=== PATIENT | female | born 1940 | race Caucasian/White ===

== ENCOUNTER 2016-09-18 15:42 | Emergency (ER) | payer MEDICARE, OTHER, MEDICAID ==
--- NOTE | 2016-09-18 18:06 | ER Document Report ---
ED Fall - General Chief Complaint: Fall Injury Stated Complaint: FALL;EYE LACERATION TRAVEL OUTSIDE OF THE [place] IN LAST 30 DAYS: No - HPI Patient complains to provider of: fall laceration to the left jew Notes: Patient coming in after her fall group home according to report patient fell of a wheelchair. According to family the patient is bedridden unclear how the patient had a fall. Patient otherwise does have a history of dementia. Patient does have bruising around left orbit and a small laceration. Patient - Related data Allergies/Adverse Reactions: ceftriaxone sodium [From Rocephin] Allergy (Intermediate, Verified 10/17/14 18: 25) acetaminophen [From Vicodin] Allergy (Verified 10/17/14 18:25) codeine [Codeine] Allergy (Verified 10/17/14 18:25) hydrocodone bitartrate [From Vicodin] Allergy (Verified 10/17/14 18:25) hydromorphone HCl [From Dilaudid] Allergy (Verified 10/17/14 18:25) latex [Latex] Allergy (Verified 10/17/14 18:25) oxycodone HCl [From Percocet] Allergy (Verified 10/17/14 18:25) Penicillins Allergy (Verified 10/17/14 18:25) Sulfa (Sulfonamide Antibiotics) Allergy (Verified 10/17/14 18:25) Past Medical History - Social History Smoking Status: Former Smoker Chew tobacco use (# tins/day): No Frequency of alcohol use: None Drug Abuse: None Family History: Reviewed & Not Pertinent Patient has suicidal ideation: No Patient has homicidal ideation: No - Past Medical History Cardiac Medical History: Reports: Hx Heart Attack, Hx Hypercholesterolemia, Hx Hypertension Renal/ Medical History: Reports: Hx Kidney Stones, Hx Ovarian Cysts. Denies: Hx Peritoneal Dialysis Psychiatric Medical History: Reports: Hx Anxiety, Hx Dementia, Hx Depression Past Surgical History: Reports: Hx Section, Hx Hysterectomy, Hx Tonsillectomy, Hx Tubal Ligation - Immunizations Hx Diphtheria, Pertussis, Tetanus Vaccination: Yes Review of Systems - Review of Systems -: Yes ROS unobtainable due to patient's medical condition - Dementia Physical Exam - Vital signs Vitals: Temp Pulse Resp BP Pulse Ox 97.9 F 70 18 155/81 H 97 09/18/16 15:55 09/18/16 15:55 09/18/16 15:55 09/18/16 15:55 09/18/16 15:55 Interpretation: Normal - General General appearance: Appears well, Alert - HEENT Head: Normocephalic. No: Atraumatic - Bruising to the left orbit Eyes: Normal Pupils: PERRL Notes: Patient with a to some a laceration to the left jew - Respiratory Respiratory status: No respiratory distress Chest status: Nontender Breath sounds: Normal Chest palpation: Normal - Cardiovascular Rhythm: Regular Heart sounds: Normal auscultation Murmur: No - Abdominal Inspection: Normal Distension: No distension Bowel sounds: Normal Tenderness: Nontender Organomegaly: No organomegaly - Back Back: Normal, Nontender - Extremities General upper extremity: Normal inspection, Nontender, Normal color, Normal ROM , Normal temperature General lower extremity: Normal inspection, Nontender, Normal color, Normal ROM , Normal temperature, Normal weight bearing. No: Bj's sign - Neurological Neuro grossly intact: Yes Cognition: Normal - Psychological Associated symptoms: Confused - Skin Skin Temperature: Warm Skin Moisture: Dry Skin Color: Normal Course - Re-evaluation Re-evalutation: 09/18/16 20:01 X-rays are negative for any acute pathology. Patient laceration was cared for Steri-Strips and Dermabond. Patient discharged home - Vital Signs Vital signs: Temp Pulse Resp BP Pulse Ox 97.9 F 66 18 148/74 H 98 09/18/16 18:32 09/18/16 18:32 09/18/16 18:32 09/18/16 18:32 09/18/16 18:32 Procedures - Laceration/Wound Repair Left Face Wound length (cm): 2 Wound's Depth, Shape: Linear Wound explored: Clean, No foreign body removed Irrigated w/ Saline (mLs): 500 Wound Repaired With: Steri-strips, Dermabond Post-procedure NV exam normal: Yes Complications: No Discharge - Discharge Clinical Impression: Facial laceration Qualifiers: Encounter type: initial encounter Qualified Code(s): S01.81XA - Laceration without foreign body of other part of head, initial encounter Fall at group home Qualifiers: Encounter type: initial encounter Qualified Code(s): W19.XXXA - Unspecified fall, initial encounter Facial contusion Qualifiers: Encounter type: initial encounter Qualified Code(s): S00.83XA - Contusion of other part of head, initial encounter Condition: Fair Disposition: HOME, SELF-CARE Instructions: Skin Adhesive Closure ([facility]), Contusion ([facility]) Additional Instructions: Follow-up with your primary care physician. Please keep the wound well covered. Please have patient follow-up with their primary care physician in 2- 3 days. Referrals: ASH MENDOZA MD [Primary Care Provider] - Follow up as needed
[2016-09-18 18:40] VITALS: BP 148/74
== END 2016-09-18 18:40 | disposition home or self-care (01) ==
LOC: ER 15:42
DX: S01.81XA Laceration without foreign body of other part of head, initial encounter (principal); W05.0XXA Fall from non-moving wheelchair, initial encounter; Y92.129 Unspecified place in nursing home as the place of occurrence of the external cause; F03.90 Unspecified dementia, unspecified severity, without behavioral disturbance, psychotic disturbance, mood disturbance, and anxiety; I10 Essential (primary) hypertension; I25.2 Old myocardial infarction; Z88.1 Allergy status to other antibiotic agents; Z88.5 Allergy status to narcotic agent; Z91.040 Latex allergy status; Z88.0 Allergy status to penicillin; Z88.2 Allergy status to sulfonamides; Z88.6 Allergy status to analgesic agent; Z87.891 Personal history of nicotine dependence
CPT/HCPCS: 70450; 72125; 73522; 99284

== ENCOUNTER 2016-09-19 02:52 | Emergency (ER) | payer MEDICARE, OTHER, MEDICAID ==
[2016-09-19] MEDS ORDERED: LIDOCAINE 1%/EPINEPHRINE INJ 20 ML VIAL INJ ONE (03:32)
[2016-09-19] MEDS ORDERED: LIDOCAINE 1%/EPINEPHRINE INJ 20 ML VIAL ONE (03:53)
--- NOTE | 2016-09-19 05:14 | ER Document Report ---
ED General - General Chief Complaint: Laceration Stated Complaint: FALL/HEAD INJURY Notes: Patient is a 76-year-old female presents for complaints of a laceration over left forehead. She was seen approximately 12 hours ago. She was treated for fall. Laceration was repaired with Steri-Strips. Steri-Strips that loosens the patient started bleeding. They therefore sent her back to ER. She's there is no reports of any recurrent falls. Patient denies any complaints other than the slow bleeding from the wound. She is on aspirin. TRAVEL OUTSIDE OF THE [place] IN LAST 30 DAYS: No - Related Data Allergies/Adverse Reactions: ceftriaxone sodium [From Rocephin] Allergy (Intermediate, Verified 10/17/14 18: 25) acetaminophen [From Vicodin] Allergy (Verified 10/17/14 18:25) codeine [Codeine] Allergy (Verified 10/17/14 18:25) hydrocodone bitartrate [From Vicodin] Allergy (Verified 10/17/14 18:25) hydromorphone HCl [From Dilaudid] Allergy (Verified 10/17/14 18:25) latex [Latex] Allergy (Verified 10/17/14 18:25) oxycodone HCl [From Percocet] Allergy (Verified 10/17/14 18:25) Penicillins Allergy (Verified 10/17/14 18:25) Sulfa (Sulfonamide Antibiotics) Allergy (Verified 10/17/14 18:25) Past Medical History - Social History Smoking Status: Never Smoker Frequency of alcohol use: None Drug Abuse: None - ` Family History: Reviewed & Not Pertinent - Past Medical History Cardiac Medical History: Reports: Hx Heart Attack, Hx Hypercholesterolemia, Hx Hypertension Renal/ Medical History: Reports: Hx Kidney Stones, Hx Ovarian Cysts. Denies: Hx Peritoneal Dialysis Psychiatric Medical History: Reports: Hx Anxiety, Hx Dementia, Hx Depression Past Surgical History: Reports: Hx Section, Hx Hysterectomy, Hx Tonsillectomy, Hx Tubal Ligation - Immunizations Hx Diphtheria, Pertussis, Tetanus Vaccination: Yes Review of Systems - Review of Systems Notes: My Normal Review Basic REVIEW OF SYSTEMS: CONSTITUTIONAL : Denies fever, chills, or sweats. Denies recent illness. MUSCULOSKELETAL: Denies neck or back pain or joint pain or swelling. SKIN: Denies rash or skin lesions. HEMATOLOGIC : On aspirin NEUROLOGICAL: Denies altered mental status or loss of consciousness. Denies headache. Denies weakness or paralysis or loss of use of either side. Denies problems with gait or speech. Denies sensory or motor loss. ALL OTHER SYSTEMS REVIEWED AND NEGATIVE. Physical Exam - Vital signs Vitals: Temp Pulse Resp BP Pulse Ox 98.4 F 61 14 127/58 H 97 09/19/16 03:24 09/19/16 03:24 09/19/16 03:24 09/19/16 03:24 09/19/16 03:24 - Notes Notes: General Appearance: Well nourished, alert, cooperative, no acute distress, no obvious discomfort. Well-appearing Vitals: reviewed, See vital signs table. Head: 2.5 centimeter laceration above left eyebrow. There is one small area with active venous oozing. Eyes: PERRL, EOMI, Conjuctiva clear Mouth: No decreasd moisture Neck: Supple, no neck tenderness, No thyromegaly Lungs: No wheezing, No rales, No rhonci, No accessory muscle use, good air exchange bilaterally. Heart: Normal rate, Regular rythm, No murmur, no rub Extremities: strength 5/5 in all extremities, good pulses in all extremities, no swelling or tenderness in the extremities, no edema. Skin: warm, dry, appropriate color, no rash Neuro: speech clear, oriented x 2, normal affect, moves all extremities on her own. Course - Vital Signs Vital signs: Temp Pulse Resp BP Pulse Ox 98.4 F 61 14 127/58 H 97 09/19/16 03:24 09/19/16 03:24 09/19/16 03:24 09/19/16 03:24 09/19/16 03:24 - Transfer of Care Notes: 09/19/16 05:53 Laceration was cleaned and irrigated. I did apply 3 sutures. The then applied Dermabond over the wound. This provided good approximation of wound edges as well as hemostasis. I did cover the wounds. I returned an hour later and there was still no recurrent active bleeding. I feel patient is safe to be discharged home. Sutures to be removed in 5 days. 09/19/16 05:54 Procedures - Laceration/Wound Repair Left Head Wound length (cm): 2 Wound's Depth, Shape: Linear Laceration pre-procedure: Sterile drapes applied, Shur-Clens applied Anesthetic type: 1% Lidocaine w/epi Volume Anesthetic (mLs): 3 Wound explored: Clean Irrigated w/ Saline (mLs): 30 Wound Repaired With: Sutures, Dermabond Suture Size/Type: 5:0, Ethilon Number of Sutures: 3 Post-procedure NV exam normal: Yes Complications: No Discharge - Discharge Clinical Impression: Laceration Condition: Good Disposition: HOME, SELF-CARE Additional Instructions: LACERATION CARE: Your laceration has been sutured to keep the skin edges aligned during healing. The time of suture removal depends on the nature and location of your cut. Please follow the care instructions the doctor has outlined for you and return for further care, according to the schedule you've been given. Keep the wound and dressing clean. Unless you were told otherwise, you may shower daily, blotting the wound dry with a clean, unused towel. At other times, If the dressing gets wet or blood soaked, remove it and blot the wound dry, then reapply a new dressing. Unless you were instructed otherwise, dressings should be changed at least daily. If any signs of infection occur (swelling, redness, drainage, increasing tenderness, red streaks, tender lumps in the armpit or groin above the laceration, or fever), see the doctor immediately. SOAP CLEANSING: Gently wash the wound daily using a mild soap (like Ivory, Phisoderm, Neutrogena). Use warm water, rubbing gently until all debris, ooze, and crusting have been washed from the wound. Allow to dry briefly (about 10 minutes) after cleaning. Repeat this cleansing at least three times a day for the first two days and then once or twice a day. FOLLOW-UP CARE: Your sutures should be removed in __5___ days. To facilitate a timely removal of your sutures, you may return to the Emergency Department at [facility]. You do not need to call for an appointment, but the best time to come in for suture removal is early in the morning. If you have been referred to another physician for follow-up care, call that physicians office for an appointment as you were instructed. If you experience a significant change in your laceration, or if you are concerned there may be an infection (swelling, redness, drainage, increasing tenderness, red streaks, tender lumps in the armpit or groin above the laceration, or fever) , return to the Emergency Department immediately re-evaluation. I placed 3 sutures in the laceration. I also placed Dermabond over the area. There is no active bleeding at this time after closure of the wound. Please have the sutures removed in 5 days. Please return to the ER immediately if Mrs. Crane has recurrent bleeding that does not stop by holding pressure for 5 minutes, if there is redness or swelling of the wound, or if you have further concerns.
[2016-09-19 06:57] VITALS: BP 114/58
== END 2016-09-19 08:05 | disposition home or self-care (01) ==
LOC: ER 02:52
PROC: 0HQ1XZZ Repair Face Skin, External Approach (ICD-10-PCS; principal; 2016-09-19)
DX: S01.81XA Laceration without foreign body of other part of head, initial encounter (principal); W19.XXXA Unspecified fall, initial encounter; Z79.82 Long term (current) use of aspirin; Z88.6 Allergy status to analgesic agent; Z88.0 Allergy status to penicillin; Z88.2 Allergy status to sulfonamides; Z91.040 Latex allergy status; I25.2 Old myocardial infarction
CPT/HCPCS: 99283; 12011; J3490

== ENCOUNTER 2017-01-07 20:01 | Observation (INO) | payer MEDICARE, MEDICAID ==
[2017-01-07] MEDS ORDERED: NORMAL SALINE 1000 ML 1,000 ML IV ONE (20:17)
[2017-01-07 22:09] LABS: ABSOLUTE BASOPHILS # (AUTO) 0.1 10^3/uL (0.0-0.2); ABSOLUTE EOSINOPHILS # (AUTO) 0.3 10^3/uL (0.0-0.6); ABSOLUTE MONOCYTES (AUTO) 0.7 10^3/uL (0.1-1.4); ABSOLUTE NEUT (AUTO) 5.8 10^3/uL (1.7-8.2); BASOPHILS % (AUTO) 1.1 % (0-2); EOSINOPHILS % (AUTO) 3.8 % (0-6); HEMOGLOBIN 12.2 g/dL (12.0-15.5); HGB HCT DIFFERENCE -1.4; LYMPHOCYTES % (AUTO) 22.3 % (13-45); MEAN CORPUSCULAR HEMOGLOBIN 29.9 pg (27.0-33.4); MEAN CORPUSCULAR HGB CONC 32.2 g/dL (32.0-36.0); MEAN CORPUSCULAR VOLUME 93 fl (80-97); MONOCYTES % (AUTO) 8.1 % (3-13); RED BLOOD COUNT 4.09 10^6/uL (3.72-5.28); RED CELL DISTRIBUTION WIDTH 13.5 % (11.5-14.0); SEGMENTED NEUTROPHILS % (AUTO) 64.7 % (42-78)
--- NOTE | 2017-01-07 22:14 | ER Document Report ---
ED Dizziness/Weakness - General Chief Complaint: Altered Mental Status Stated Complaint: DIZZINESS Time Seen by Provider: 01/07/17 20:16 Notes: The patient is a 76-year-old female, past medical history dementia, Alzheimer's , presents from home after she was having decreased interactions with her family. At baseline, she usually knows her name and can speak to them. For the past 2 days, she is more somnolent and keeping her eyes closed. Patient was complaining of back of her head pain and suprapubic pain to her daughter yesterday. Unable to provide any additional history. TRAVEL OUTSIDE OF THE [place] IN LAST 30 DAYS: No - Related Data Allergies/Adverse Reactions: ceftriaxone sodium [From Rocephin] Allergy (Intermediate, Verified 10/17/14 18: 25) acetaminophen [From Vicodin] Allergy (Verified 10/17/14 18:25) codeine [Codeine] Allergy (Verified 10/17/14 18:25) hydrocodone bitartrate [From Vicodin] Allergy (Verified 10/17/14 18:25) hydromorphone HCl [From Dilaudid] Allergy (Verified 10/17/14 18:25) latex [Latex] Allergy (Verified 10/17/14 18:25) oxycodone HCl [From Percocet] Allergy (Verified 10/17/14 18:25) Penicillins Allergy (Verified 10/17/14 18:25) Sulfa (Sulfonamide Antibiotics) Allergy (Verified 10/17/14 18:25) Past Medical History - General Information source: Patient - Social History Smoking Status: Never Smoker Family History: Reviewed & Not Pertinent - Past Medical History Cardiac Medical History: Reports: Hx Heart Attack, Hx Hypercholesterolemia, Hx Hypertension Renal/ Medical History: Reports: Hx Kidney Stones, Hx Ovarian Cysts. Denies: Hx Peritoneal Dialysis Psychiatric Medical History: Reports: Hx Anxiety, Hx Dementia, Hx Depression Past Surgical History: Reports: Hx Section, Hx Hysterectomy, Hx Tonsillectomy, Hx Tubal Ligation - Immunizations Hx Diphtheria, Pertussis, Tetanus Vaccination: Yes Review of Systems - Review of Systems -: Yes ROS unobtainable due to patient's medical condition Physical Exam - Vital signs Vitals: Temp Pulse Resp BP Pulse Ox 98.5 F 67 18 107/75 99 01/07/17 20:25 01/07/17 20:25 01/07/17 20:25 01/07/17 20:25 01/07/17 20:25 - Notes Notes: PHYSICAL EXAMINATION: GENERAL: Somnolent, no acute distress. HEAD: Atraumatic, normocephalic. EYES: Pupils equal round and reactive to light, extraocular movements intact, sclera anicteric, conjunctiva are normal. ENT: nares patent, oropharynx clear without exudates. Moist mucous membranes. NECK: Normal range of motion, supple without lymphadenopathy LUNGS: Breath sounds clear to auscultation bilaterally and equal. No wheezes rales or rhonchi. HEART: Regular rate and rhythm without murmurs ABDOMEN: Soft, nontender, normoactive bowel sounds. No guarding, no rebound. No masses appreciated. EXTREMITIES: No pitting or edema. No cyanosis. NEUROLOGICAL: Pt awakens to painful stimulation. Follows commands. Will not open eyes. SKIN: Warm, Dry, normal turgor, no rashes or lesions noted. Course - Re-evaluation Re-evalutation: Patient with increased altered mental status, according to family. No focalizing neuro symptoms. Her urinalysis shows evidence of a UTI. Will begin Cipro due to multiple medication allergies and prior urine cultures and admit as inpatient for IV fluids and IV antibiotics. Spoke to Dr. Avila at 02:30 and he will admit patient as inpatient telemetry. - Vital Signs Vital signs: Temp Pulse Resp BP Pulse Ox 98.5 F 67 16 130/72 H 96 01/07/17 20:25 01/07/17 20:25 01/08/17 02:21 01/08/17 02:21 01/08/17 02:21 - Laboratory Result Diagrams: 01/07/17 21:55 01/07/17 22:30 Laboratory results interpreted by me: 01/07/17 01/08/17 22:30 01:25 Creatine Kinase 250 H Albumin 3.3 L Urine Blood MODERATE H Urine Nitrite POSITIVE H Ur Leukocyte Esterase SMALL H - Diagnostic Test Radiology reviewed: Image reviewed, Reports reviewed Discharge - Discharge Clinical Impression: Dehydration Urinary tract infection Qualifiers: Urinary tract infection type: site unspecified Hematuria presence: without hematuria Qualified Code(s): N39.0 - Urinary tract infection, site not specified Altered mental state Qualifiers: Altered mental status type: unspecified Qualified Code(s): R41.82 - Altered mental status, unspecified Condition: Stable Disposition: ADMITTED INPATIENT Admitting Provider: [facility] Admitted: Telemetry
[2017-01-07 22:55] LABS: ALANINE AMINOTRANSFERASE 24 U/L (9-52); ALBUMIN 3.3 g/dL (3.5-5.0); ALKALINE PHOSPHATASE 71 U/L (38-126); ANION GAP 8 (5-19); ASPARTATE AMINO TRANSFERASE 23 U/L (14-36); BILIRUBIN,DIRECT 0.3 mg/dL (0.0-0.4); BILIRUBIN,TOTAL 0.6 mg/dL (0.2-1.3); BLOOD UREA NITROGEN 15 mg/dL (7-20); CALCIUM 9.3 mg/dL (8.4-10.2); CARBON DIOXIDE 28 mmol/L (22-30); CHLORIDE 104 mmol/L (98-107); CREATINE KINASE 250 U/L (30-135); CREATININE RESULT 0.55 mg/dL (0.52-1.25); GLUCOSE 92 mg/dL (75-110); POTASSIUM 4.3 mmol/L (3.6-5.0); SODIUM 140.1 mmol/L (137-145); TOTAL PROTEIN 6.6 g/dL (6.3-8.2)
[2017-01-07 22:58] LABS: ALCOHOL < 10 mg/dL (NONE DETECTED)
--- NOTE | 2017-01-07 23:01 | RADIOLOGY REPORT (SQ) ---
EXAM DESCRIPTION: CHEST SINGLE VIEW COMPLETED DATE/TIME: 01/07/2017 10:08 pm REASON FOR STUDY: AMS COMPARISON: 10/17/2014 EXAM PARAMETERS: NUMBER OF VIEWS: One view. TECHNIQUE: Single frontal radiographic view of the chest acquired. RADIATION DOSE: NA LIMITATIONS: None. FINDINGS: LUNGS AND PLEURA: No acute opacities, masses or pneumothorax. No pleural effusion. MEDIASTINUM AND HILAR STRUCTURES: Stable. Elevated left hemidiaphragm appears similar. HEART AND VASCULAR STRUCTURES: Stable. BONES: No acute findings. HARDWARE: None in the chest. OTHER: No other significant finding. IMPRESSION: NO ACUTE RADIOGRAPHIC FINDING IN THE CHEST. TECHNICAL DOCUMENTATION: JOB ID: [id number]
--- NOTE | 2017-01-07 23:05 | RADIOLOGY REPORT (SQ) ---
EXAM DESCRIPTION: CT HEAD WITHOUT COMPLETED DATE/TIME: 01/07/2017 10:11 pm REASON FOR STUDY: AMS COMPARISON: 09/18/2016 TECHNIQUE: Axial images acquired through the brain without intravenous contrast. Images reviewed wi th bone, brain and subdural windows. Images stored on PACS. All CT scanners at this facility use dose modulation, iterative reconstruction, and/or weight based d osing when appropriate to reduce radiation dose to as low as reasonably achievable (ALARA). [facility]: Dose Right [facility]: CareDose [facility]: Dose Right [facility]: Teradose 4D [facility]: Smart [employer] RADIATION DOSE: Up-to-date CT equipment and radiation dose reduction techniques were employed. CTDIv ol: 64.6 mGy. DLP: 1163 mGy-cm.mGy. LIMITATIONS: None. FINDINGS: VENTRICLES: Prominent. CEREBRUM: No masses. No hemorrhage. No midline shift. Areas of low density in the white matter mos t likely due to chronic micro-vascular ischemic change. No evidence for acute infarction. CEREBELLUM: No masses. No hemorrhage. No alteration of density. No evidence for acute infarction. EXTRAAXIAL SPACES: Age-related involutional change. No fluid collections. No masses. ORBITS AND GLOBE: No intra- or extraconal masses. Normal contour of globe without masses. CALVARIUM: No fracture. PARANASAL SINUSES: No fluid or mucosal thickening. SOFT TISSUES: No mass or hematoma. OTHER: No other significant finding. IMPRESSION: CHRONIC CHANGES OF ATROPHY AND MICROVASCULAR ISCHEMIA. NO ACUTE PROCESS. TECHNICAL DOCUMENTATION: JOB ID: [id number] Quality ID # [id number]: Final reports with documentation of one or more dose reduction techniques (e.g., Au tomated exposure control, adjustment of the mA and/or kV according to patient size, use of iterative reconstruction technique) 2010 [employer]- All Rights Reserved
[2017-01-07 23:09] LABS: TROPONIN I < 0.012 ng/mL
[2017-01-08 01:41] LABS: APPEARANCE,URINE SLIGHTLY-CLOUDY; BILIRUBIN,URINE NEGATIVE (NEGATIVE); GLUCOSE, URINE NEGATIVE (NEGATIVE); KETONES,URINE NEGATIVE (NEGATIVE); LEUKOCYTE ESTERASE,URINE SMALL (NEGATIVE); NITRITE,URINE POSITIVE (NEGATIVE); PROTEIN,URINE NEGATIVE (NEGATIVE); URINE SPECIFIC GRAVITY 1.019; UROBILINOGEN,URINE NEGATIVE mg/dL (<2.0)
[2017-01-08 01:52] LABS: URINE BARBITURATES SCREEN NEGATIVE; URINE METHADONE SCREEN NEGATIVE; URINE OPIATES LOW NEGATIVE; URINE PHENCYCLIDINE SCREEN NEGATIVE
[2017-01-08] MEDS ORDERED: CIPROFLOXACIN 400 MG/D5W RTU 400 MG/200 ML RTUPB IV ONE (03:00)
[2017-01-08] MEDS ORDERED: CIPROFLOXACIN 400 MG/D5W RTU 200 ML IV SCH (03:00)
[2017-01-08] MEDS ORDERED: 1/2 NORMAL SALINE 1,000 ML IV PRN (04:38)
[2017-01-08] MEDS ORDERED: DIAZEPAM 2 MG TABLET PO PRN (05:15)
--- NOTE | 2017-01-08 10:46 | EKG REPORT ---
SEVERITY:- NORMAL ECG - SINUS RHYTHM : Confirmed by: Juany Orosco MD 08-Jan-2017 10:45:20
[2017-01-08] MEDS: ATENOLOL 50 MG TABLET PO SCH (11:36)
[2017-01-08] MEDS: ASPIRIN 81 MG TABLET, CHEWABLE PO SCH (11:37)
[2017-01-08] MEDS: POTASSIUM CHLORIDE 10 MEQ TABLET.SA PO SCH (11:38)
[2017-01-08] MEDS: CIPROFLOXACIN 400 MG/D5W RTU 400 MG/200 ML RTUPB IV SCH ×2 (11:38→21:41)
[2017-01-08] MEDS ORDERED: ACETAMINOPHEN 325 MG TABLET PO PRN (19:18)
[2017-01-08] MEDS ORDERED: ALPRAZOLAM 0.5 MG TABLET PO PRN (19:18)
[2017-01-08] MEDS ORDERED: DOXEPIN HCL TP PRN (19:18)
[2017-01-08] MEDS: CALCIUM CARBONATE 250 MG/VITAMIN D3 125 UNIT TABLET PO SCH (21:42)
[2017-01-08] MEDS ORDERED: ATORVASTATIN CALCIUM 10 MG TABLET PO SCH ×2 (22:00)
[2017-01-09] MEDS ORDERED: ATENOLOL 50 MG TABLET PO SCH (10:00)
[2017-01-09] MEDS ORDERED: CYANOCOBALAMIN (VITAMIN B-12) 1,000 MCG TABLET PO SCH (10:00)
[2017-01-09] MEDS ORDERED: ASPIRIN 81 MG TABLET, CHEWABLE PO SCH (10:00)
[2017-01-09] MEDS: CIPROFLOXACIN 400 MG/D5W RTU 400 MG/200 ML RTUPB IV SCH (10:00)
[2017-01-09] MEDS ORDERED: CITALOPRAM HYDROBROMIDE 20 MG TABLET PO SCH (10:00)
[2017-01-09] MEDS ORDERED: (PENDING PHARMACY ID) (Calcium Carbonate/Vitamin D3 [Os-Cal 500-Vit D3 200 Caplet] 1 TAB) PO SCH (10:00)
[2017-01-09] MEDS ORDERED: (PENDING PHARMACY ID) (Atenolol [Tenormin] 25 MG) PO SCH (10:00)
[2017-01-09] MEDS: CALCIUM CARBONATE 250 MG/VITAMIN D3 125 UNIT TABLET PO SCH (10:01)
[2017-01-09] MEDS: POTASSIUM CHLORIDE 10 MEQ TABLET.SA PO SCH (10:01)
[2017-01-09] MEDS: ATENOLOL 50 MG TABLET PO SCH (10:02)
[2017-01-09] MEDS: MEMANTINE HCL 10 MG TABLET PO SCH ×2 (10:03→17:33)
[2017-01-09] MEDS: ASPIRIN 81 MG TABLET, CHEWABLE PO SCH (10:03)
--- NOTE | 2017-01-09 17:24 | PDOC H&P ---
History of Present Illness Admission Date/PCP: 01/08/17 04:53 History of Present Illness: PETER SANTACRUZ is a 76 year old female she has advanced dementia, resident of the nursing she was transferred from the long term because family was concerned that she was dehydrated and she is not as responsive as she used to be. In the emergency room she was evaluated she was found to have UTI , was advised to be admitted into the hospital. She has advanced dementia she does not respond to questions appropriately. She is pleasantly confused, she was brought in for observation and management of her symptoms Past Medical History Cardiac Medical History: Reports: Myocardial Infarction, Hyperlipidema, Hypertension Psychiatric Medical History: Reports: Dementia, Depression Past Surgical History Past Surgical History: Reports: Section, Hysterectomy, Tonsillectomy, Tubal Ligation Social History Smoking Status: Never Smoker Frequency of Alcohol Use: None Hx Recreational Drug Use: No Drugs: None Hx Prescription Drug Abuse: No Family History Family History: Reviewed & Not Pertinent Parental Family History Reviewed: Yes Children Family History Reviewed: Yes Sibling(s) Family History Reviewed.: Yes Medication/Allergy Home Medications: Acetaminophen [Tylenol 325 mg Tablet] 650 mg PO Q4HP PRN 01/08/17 Alprazolam [Xanax 0.5 mg Tablet] 0.5 mg PO DAILYP PRN 01/08/17 Aspirin [Aspirin 81 mg Chewable Tablet] 81 mg PO DAILY 01/08/17 Atenolol [Tenormin] 25 mg PO DAILY 01/08/17 Atorvastatin Calcium [Lipitor 10 mg Tablet] 10 mg PO QHS 01/08/17 Calcium Carbonate/Vitamin D3 [Os-Pablo 500+D Tablet] 1 tab PO BID 01/08/17 Citalopram Hydrobromide [Celexa 20 mg Tablet] 20 mg PO DAILY 01/08/17 Cyanocobalamin (Vitamin B-12) [Vitamin B-12 1000 Mcg Tablet] 1 tab PO DAILY Doxepin HCl [Zonalon] 1 applic TP TIDP PRN 01/08/17 Memantine HCl [Namenda 10 mg Tablet] 10 mg PO BID 01/08/17 Menthol [Bengay Vanishing Scent] 1 applic TP Q6HP PRN 01/08/17 Miconazole Nitrate [Miconazorb AF] 1 applic TP BIDP PRN 06/22/17 Mirtazapine [Remeron] 7.5 mg PO QHS 01/08/17 Polyethylene Glycol 3350 [Miralax Powder 17 gm/Packet] 1 packet PO DAILY Allergies/Adverse Reactions: ceftriaxone sodium [From Rocephin] Allergy (Intermediate, Verified 10/17/14 18: 25) acetaminophen [From Vicodin] Allergy (Verified 10/17/14 18:25) codeine [Codeine] Allergy (Verified 10/17/14 18:25) hydrocodone bitartrate [From Vicodin] Allergy (Verified 10/17/14 18:25) hydromorphone HCl [From Dilaudid] Allergy (Verified 10/17/14 18:25) latex [Latex] Allergy (Verified 10/17/14 18:25) oxycodone HCl [From Percocet] Allergy (Verified 10/17/14 18:25) Penicillins Allergy (Verified 10/17/14 18:25) Sulfa (Sulfonamide Antibiotics) Allergy (Verified 10/17/14 18:25) Review of Systems ROS unobtainable: Other - Advanced dementia Physical Exam Vital Signs: Temp Pulse Resp BP Pulse Ox 98.4 F 56 L 18 119/73 97 01/09/17 15:17 01/09/17 15:17 01/09/17 15:17 01/09/17 15:17 01/09/17 15:17 Intake & Output 01/08/17 01/09/17 01/10/17 06:59 06:59 06:59 Intake Total 0 3187 Output Total 0 Balance 0 3187 Weight 56.6 kg 60.4 kg General appearance: PRESENT: no acute distress Eye exam: PRESENT: PERRLA Mouth exam: PRESENT: moist Respiratory exam: PRESENT: clear to auscultation juanita Cardiovascular exam: PRESENT: +S1, +S2 GI/Abdominal exam: PRESENT: soft Neurological exam: PRESENT: alert Psychiatric exam: PRESENT: depressed Results Impressions: Chest X-Ray 01/07/17 20:16 IMPRESSION: NO ACUTE RADIOGRAPHIC FINDING IN THE CHEST. Head CT 01/07/17 20:17 IMPRESSION: CHRONIC CHANGES OF ATROPHY AND MICROVASCULAR ISCHEMIA. NO ACUTE PROCESS. Assessment & Plan - Diagnosis (1) Urinary tract infection Qualifiers: Urinary tract infection type: site unspecified Hematuria presence: without hematuria Qualified Code(s): N39.0 - Urinary tract infection, site not specified Is this a current diagnosis for this admission?: YesPlan: She is admitted for UTI, started on IV antibiotic (2) Dehydration Is this a current diagnosis for this admission?: Yes (3) Dementia Qualifiers: Dementia type: Alzheimer's disease Alzheimer's disease onset: late- onset Dementia behavioral disturbance: without behavioral disturbance Qualified Code(s): G30.1 - Alzheimer's disease with late onset; F02.80 - Dementia in other diseases classified elsewhere without behavioral disturbance Is this a current diagnosis for this admission?: Yes
--- NOTE | 2017-01-09 17:27 | PDOC TRANSFER SUMMARY ---
General - Admit/Disc Date/PCP Admission Date/Primary Care Provider: 01/08/17 04:53 Discharge Date: 01/09/17 - Discharge Diagnosis (1) Urinary tract infection Is this a current diagnosis for this admission?: Yes (2) Dehydration Is this a current diagnosis for this admission?: Yes (3) Dementia Is this a current diagnosis for this admission?: Yes - Additional Information Discharge Activity: Activity As Tolerated Home Medications: Acetaminophen [Tylenol 325 mg Tablet] 650 mg PO Q4HP PRN 01/08/17 Alprazolam [Xanax 0.5 mg Tablet] 0.5 mg PO DAILYP PRN 01/08/17 Aspirin [Aspirin 81 mg Chewable Tablet] 81 mg PO DAILY 01/08/17 Atenolol [Tenormin] 25 mg PO DAILY 01/08/17 Atorvastatin Calcium [Lipitor 10 mg Tablet] 10 mg PO QHS 01/08/17 Calcium Carbonate/Vitamin D3 [Os-Pablo 500-Vit D3 200 Caplet] 1 tab PO BID Citalopram Hydrobromide [Celexa 20 mg Tablet] 20 mg PO DAILY 01/08/17 Cyanocobalamin (Vitamin B-12) [Vitamin B-12 1000 mcg Tablet] 1 tab PO DAILY Doxepin HCl [Zonalon] 1 applic TP TIDP PRN 01/08/17 Memantine HCl [Namenda 10 mg Tablet] 10 mg PO BID 01/08/17 Menthol [Bengay Vanishing Scent] 1 applic TP Q6HP PRN 01/08/17 Miconazole Nitrate [Miconazorb AF] 1 applic TP BIDP PRN 01/08/17 Mirtazapine [Remeron] 7.5 mg PO QHS 01/08/17 Polyethylene Glycol 3350 [Miralax Powder 17 gm/Packet] 1 packet PO DAILY Ciprofloxacin HCl [Cipro 500 mg Tablet] 500 mg PO BID #14 tablet 01/09/17 History of Present Illness Admission Date/PCP: 01/08/17 04:53 History of Present Illness: PETER SANTACRUZ is a 76 year old female she has advanced dementia, resident of the nursing she was transferred from the assisted because family was concerned that she was dehydrated and she is not as responsive as she used to be. In the emergency room she was evaluated she was found to have UTI , was advised to be admitted into the hospital. She has advanced dementia she does not respond to questions appropriately. She is pleasantly confused, she was brought in for observation and management of her symptoms Hospital Course Hospital Course: She has advanced dementia she was admitted for observation due to UTI and dehydration. She was treated with IV Cipro and IV fluid Physical Exam Vital Signs: Temp Pulse Resp BP Pulse Ox 98.4 F 56 L 18 119/73 97 01/09/17 15:17 01/09/17 15:17 01/09/17 15:17 01/09/17 15:17 01/09/17 15:17 Intake & Output 01/08/17 01/09/17 01/10/17 06:59 06:59 06:59 Intake Total 0 3187 Output Total 0 Balance 0 3187 Weight 56.6 kg 60.4 kg General appearance: PRESENT: no acute distress Eye exam: PRESENT: PERRLA Respiratory exam: PRESENT: clear to auscultation juanita Cardiovascular exam: PRESENT: +S1, +S2 GI/Abdominal exam: PRESENT: soft Neurological exam: PRESENT: alert Results Impressions: Chest X-Ray 01/07/17 20:16 IMPRESSION: NO ACUTE RADIOGRAPHIC FINDING IN THE CHEST. Head CT 01/07/17 20:17 IMPRESSION: CHRONIC CHANGES OF ATROPHY AND MICROVASCULAR ISCHEMIA. NO ACUTE PROCESS.
[2017-01-09 20:05] VITALS: BP 123/67
== END 2017-01-09 21:23 ==
LOC: ER 20:01 → EH 01-08 02:42 → UNDOADMIN 01-08 02:42 → 5 01-08 04:14 → EH 01-08 04:14 → 5 01-08 04:53 → INTOOBSV 01-08 04:53
PROVIDERS: ADMIT Internal Medicine; ATTEND Internal Medicine
DX: N39.0 Urinary tract infection, site not specified (principal); E86.0 Dehydration; G30.1 Alzheimer's disease with late onset; F02.80 Dementia in other diseases classified elsewhere, unspecified severity, without behavioral disturbance, psychotic disturbance, mood disturbance, and anxiety; R40.0 Somnolence; I25.2 Old myocardial infarction; Z79.899 Other long term (current) drug therapy; Z79.82 Long term (current) use of aspirin; Z98.51 Tubal ligation status; Z90.710 Acquired absence of both cervix and uterus
CPT/HCPCS: 93005; 99285; 36415; 80307 ×2; 82550; 85025; 80053; 81001; 84484; 83605; 83880; 71010; 70450; 93010; A9270 ×11; J0744 ×2; G0378

== ENCOUNTER 2017-04-24 20:04 | Emergency (ER) | payer MEDICARE, MEDICAID ==
[2017-04-24] MEDS ORDERED: NORMAL SALINE 1000 ML 1,000 ML IV ONE ×2 (20:40→23:00)
--- NOTE | 2017-04-24 20:49 | ER Document Report ---
ED General - General Chief Complaint: Altered Mental Status Stated Complaint: DECREASED HEARTRATE Time Seen by Provider: 04/24/17 20:38 Notes: Patient is a resident at a local residential, [facility], and is being evaluated because of decreased level of consciousness and a slow heart rate this afternoon. Family members try to visit patient on a daily basis. They report that she seemed to be fine in her usual self 2 days ago as well as yesterday. She is different today and staff at [facility] seem to confirm that the patient had a change in her mental status around midday today. 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 However, family reports that patient usually is laughing and joking and interacting with them and makes sense sometimes. They are concerned that she may have had a stroke. In addition, her heart rate was noted to be in the 40s. We do not know what her blood pressure was at that time. No reported recent illness. No fevers. Is prone to getting UTIs. Patient does have dementia. TRAVEL OUTSIDE OF THE [place] IN LAST 30 DAYS: No - Related Data Allergies/Adverse Reactions: ceftriaxone sodium [From Rocephin] Allergy (Intermediate, Verified 10/17/14 18: 25) acetaminophen [From Vicodin] Allergy (Verified 10/17/14 18:25) codeine [Codeine] Allergy (Verified 10/17/14 18:25) hydrocodone bitartrate [From Vicodin] Allergy (Verified 10/17/14 18:25) hydromorphone HCl [From Dilaudid] Allergy (Verified 10/17/14 18:25) latex [Latex] Allergy (Verified 10/17/14 18:25) oxycodone HCl [From Percocet] Allergy (Verified 10/17/14 18:25) Penicillins Allergy (Verified 10/17/14 18:25) Sulfa (Sulfonamide Antibiotics) Allergy (Verified 10/17/14 18:25) Past Medical History - Social History Smoking Status: Unknown if Ever Smoked Cigarette use (# per day): No Lives with: Correction Family History: Reviewed & Not Pertinent - Past Medical History Cardiac Medical History: Reports: Hx Heart Attack, Hx Hypercholesterolemia, Hx Hypertension Neurological Medical History: Denies: Hx Cerebrovascular Accident Renal/ Medical History: Reports: Hx Kidney Stones, Hx Ovarian Cysts. Denies: Hx Peritoneal Dialysis Psychiatric Medical History: Reports: Hx Anxiety, Hx Dementia, Hx Depression Past Surgical History: Reports: Hx Section, Hx Hysterectomy, Hx Tonsillectomy, Hx Tubal Ligation - Immunizations Hx Diphtheria, Pertussis, Tetanus Vaccination: Yes Review of Systems - Review of Systems Notes: REVIEW OF SYSTEMS: Per family: CONSTITUTIONAL : Denies fever. EENT: Denies eye, ear, nose or mouth or throat pain or other symptoms. CARDIOVASCULAR: Denies chest pain. RESPIRATORY: Denies cough, chest congestion, or shortness of breath. GASTROINTESTINAL: Denies abdominal pain or nausea, vomiting, or diarrhea. GENITOURINARY: Denies difficulty or painful urinating, urinary frequency, blood in urine. MUSCULOSKELETAL: Denies back or neck pain. Denies joint pain or swelling. SKIN: Denies rash or skin lesions. NEUROLOGICAL: See HPI. ALL OTHER SYSTEMS REVIEWED AND NEGATIVE. -: Yes ROS unobtainable due to patient's medical condition - Patient is unable to speak or answer any questions. Stares straight ahead. Physical Exam - Vital signs Vitals: Temp Pulse Resp BP Pulse Ox 98 F 58 L 18 109/51 L 95 04/24/17 20:30 04/24/17 20:30 04/24/17 20:30 04/24/17 20:30 04/24/17 20:30 Interpretation: Normal. No: Febrile - Notes Notes: PHYSICAL EXAMINATION: GENERAL: Well-appearing, in no acute distress. Sits staring straight ahead. Will shake her head very slightly yes or no to questions and seems to understand some of the questions enough to answer correctly. Does not carry on a conversation, which family says is new and different for her. HEAD: Atraumatic, normocephalic. EYES: Pupils equal round and reactive to light, extraocular movements intact. ENT: oropharynx clear without exudates. Moist mucous membranes. NECK: Normal range of motion, supple. LUNGS: Breath sounds clear and equal bilaterally. HEART: Regular rate and rhythm without murmurs. ABDOMEN: Soft, nontender. No guarding or rebound. BACK: No tenderness throughout entire back. EXTREMITIES: Normal range of motion without pain. NEUROLOGICAL: Patient does not walk. She is bed confined. SKIN: Warm, dry, no rashes. Course - Re-evaluation Re-evalutation: 04/24/17 23:02 Patient is more alert. Answering questions better. Family agrees that the patient is mentally more alert now. Drank about 6 glasses of apple juice. Has received almost a liter of saline. Has not had any urine output. Catheter has some urine in the catheter itself, but none is made its way down to the collection reservoir part of the Diaz set up. Check for proper placement and its and the right location. Flushed with saline and suction applied and urine comes back out of the bladder. Small amount of urine being found is cloudy looking in and has flecks of blood present. CT of the head is normal. X-ray of the chest is negative. Plan is to give the patient a dose of antibiotic. She is allergic to Rocephin, unfortunately. 04/25/17 00:[address] Roper, who is on-call for this patient's primary care provider , Dr. Avila. He suggests Levaquin 500 mg IV now and then 250 a day after that. 04/25/17 00:09 Patient carries on a conversation now with each entry into her room. 04/25/17 00:19 - Vital Signs Vital signs: Temp Pulse Resp BP Pulse Ox 98 F 58 L 13 120/71 96 04/24/17 20:30 04/24/17 20:30 04/24/17 23:00 04/24/17 22:36 04/24/17 23:00 - Laboratory Result Diagrams: 04/24/17 21:04 04/24/17 21:04 - EKG Interpretation by [facility] EKG shows normal: Sinus rhythm Rate: Normal - Normal at 55. Rhythm: NSR Discharge - Discharge Clinical Impression: Altered mental status, UTI (urinary tract infection) Condition: Stable Disposition: HOME, SELF-CARE Additional Instructions: Altered Mental Status An altered mental status is a change in the normal functioning of the brain. This alteration of function can range from minor decreased brain function with some forgetfulness and confusion to complete loss of consciousness and coma. There are many possible causes of an altered mental status and include brain injuries such as trauma or strokes, problems with oxygen supply to the brain, fever and infections of the brain and/or elsewhere in the body, metabolic abnormalities such as low or high blood sugar, overdoses or excessive medication ingestion, and mental and psychiatric illnesses. Sometimes the altered mental status resolves and a definite cause is not determined. If a cause for your altered mental status was found, it has likely been corrected. Your evaluation has not shown any condition that requires that you be admitted to the hospital. It is believed that you are safe to leave and return to your home. If you have a return of your symptoms, you should return for re-evaluation. URINARY TRACT INFECTION: Your evaluation indicates that you have a urinary tract infection. This is due to germs growing in the bladder. This is a common problem. This infection usually responds quickly to antibiotics. Your antibiotic should be taken exactly as prescribed. Drink plenty of fluids -- three to four quarts a day. Occasionally, a bladder anesthetic will be prescribed to help stop the feeling of urgency until the antibiotic has a chance to clear the infection. This may cause your urine to be dark orange. Certain urine infections require a culture. If the doctor obtained a culture, the results will be back in two days. You should call to see if a change in treatment is needed. A repeat urinalysis after you finish treatment is often recommended. The physician will let you know if further testing is required. Call the doctor if you develop fever, chills, flank pain, inability to urinate, or blood in the urine. ANTIBIOTIC THERAPY: You have been given an antibiotic prescription. It's important that you take all the medication, unless instructed otherwise by your physician. Failure to complete the entire course can result in relapse of your condition. Common side effects of antibiotics include nausea, intestinal cramping, or diarrhea. Women may develop vaginal yeast infections, and babies can get yeast (thrush) in the mouth following the use of antibiotics. Contact your physician if you develop significant side effects from this medication. Allergy to this antibiotic can result in hives, wheezing, faintness, or itching. If symptoms of allergy occur, stop the medication and call the doctor. LEVOFLOXACIN: You have been given an antibacterial agent, levofloxacin (Levaquin). This medicine is not related to the penicillins, sulfas, cephalosporins, or tetracyclines. It is often given to patients who are allergic to these drugs. It has been chosen for you either because other drugs are not appropriate, or because of the nature of your problem. Levaquin should not be taken with antacids, as these can decrease its effectiveness. It can be taken without regard to meals. LEVAQUIN SHOULD NOT BE TAKEN BY CHILDREN, NURSING WOMEN, OR WOMEN. Although Levaquin is usually well-tolerated, common side effects can include nausea and diarrhea. Contact your doctor if you experience any unusual symptoms while on this medication, such as joint pain or swelling, shortness of breath, wheezing, faintness, or hives. Encourage fluid intake. Contact Dr. Roper if any worsening in patient's condition over the weekend. Return to the emergency department if condition worsens, especially if high fever, etc. FOLLOW-UP CARE: If you have been referred to a physician for follow-up care, call the physician s office for an appointment as you were instructed or within the next two days. If you experience worsening or a significant change in your symptoms, notify the physician immediately or return to the Emergency Department at any time for re-evaluation. Prescriptions: Levofloxacin [Levaquin 250 mg Tablet] 250 mg PO DAILY #7 tablet Referrals: ASH AVILA MD [Primary Care Provider] - Follow up as needed
[2017-04-24 21:21] LABS: ABSOLUTE BASOPHILS # (AUTO) 0.1 10^3/uL (0.0-0.2); ABSOLUTE EOSINOPHILS # (AUTO) 0.3 10^3/uL (0.0-0.6); ABSOLUTE LYMPHOCYTES (AUTO) 2.2 10^3/uL (0.5-4.7); ABSOLUTE MONOCYTES (AUTO) 0.5 10^3/uL (0.1-1.4); ABSOLUTE NEUT (AUTO) 3.9 10^3/uL (1.7-8.2); BASOPHILS % (AUTO) 0.9 % (0-2); EOSINOPHILS % (AUTO) 3.7 % (0-6); HEMATOCRIT 39.4 % (36.0-47.0); HEMOGLOBIN 13.2 g/dL (12.0-15.5); HGB HCT DIFFERENCE 0.2; LYMPHOCYTES % (AUTO) 31.7 % (13-45); MEAN CORPUSCULAR HEMOGLOBIN 30.7 pg (27.0-33.4); MEAN CORPUSCULAR HGB CONC 33.6 g/dL (32.0-36.0); MEAN CORPUSCULAR VOLUME 91 fl (80-97); MONOCYTES % (AUTO) 7.3 % (3-13); RED BLOOD COUNT 4.31 10^6/uL (3.72-5.28); RED CELL DISTRIBUTION WIDTH 13.7 % (11.5-14.0); SEGMENTED NEUTROPHILS % (AUTO) 56.4 % (42-78); WHITE BLOOD COUNT 6.8 10^3/uL (4.0-10.5)
--- NOTE | 2017-04-24 21:21 | RADIOLOGY REPORT (SQ) ---
EXAM DESCRIPTION: CT HEAD WITHOUT COMPLETED DATE/TIME: 04/24/2017 9:10 pm REASON FOR STUDY: Altered mental status, decreased activity, talking COMPARISON: 01/07/2017 TECHNIQUE: Axial images acquired through the brain without intravenous contrast. Images reviewed wi th bone, brain and subdural windows. Images stored on PACS. All CT scanners at this facility use dose modulation, iterative reconstruction, and/or weight based d osing when appropriate to reduce radiation dose to as low as reasonably achievable (ALARA). [facility]: Dose Right [facility]: CareDose [facility]: Dose Right [facility]: Teradose 4D [facility]: [employer] RADIATION DOSE: Up-to-date CT equipment and radiation dose reduction techniques were employed. CTDIv ol: 28.0 - 29.1 mGy. DLP: 1075 mGy-cm.mGy. LIMITATIONS: None. FINDINGS: VENTRICLES: Prominent. CEREBRUM: No masses. No hemorrhage. No midline shift. Areas of low density in the white matter mos t likely due to chronic micro-vascular ischemic change. No evidence for acute infarction. CEREBELLUM: No masses. No hemorrhage. No alteration of density. No evidence for acute infarction. EXTRAAXIAL SPACES: Age-related involutional change. No fluid collections. No masses. ORBITS AND GLOBE: No intra- or extraconal masses. Normal contour of globe without masses. CALVARIUM: No fracture. PARANASAL SINUSES: No fluid or mucosal thickening. SOFT TISSUES: No mass or hematoma. OTHER: No other significant finding. IMPRESSION: NO ACUTE INTRACRANIAL PROCESS. NO SIGNIFICANT CHANGE FROM PRIOR STUDY. EVIDENCE OF ACUTE STROKE: NO. TECHNICAL DOCUMENTATION: JOB ID: [id number] Quality ID # [id number]: Final reports with documentation of one or more dose reduction techniques (e.g., Au tomated exposure control, adjustment of the mA and/or kV according to patient size, use of iterative reconstruction technique) 2010 [employer]- All Rights Reserved
[2017-04-24 21:35] LABS: ALANINE AMINOTRANSFERASE 25 U/L (9-52); ALBUMIN 3.5 g/dL (3.5-5.0); ALKALINE PHOSPHATASE 70 U/L (38-126); ANION GAP 12 (5-19); ASPARTATE AMINO TRANSFERASE 17 U/L (14-36); BILIRUBIN,DIRECT 0.2 mg/dL (0.0-0.4); BILIRUBIN,TOTAL 0.4 mg/dL (0.2-1.3); BLOOD UREA NITROGEN 15 mg/dL (7-20); CALCIUM 9.7 mg/dL (8.4-10.2); CARBON DIOXIDE 28 mmol/L (22-30); CHLORIDE 104 mmol/L (98-107); GLUCOSE 110 mg/dL (75-110); POTASSIUM 4.3 mmol/L (3.6-5.0); SODIUM 143.6 mmol/L (137-145); TOTAL PROTEIN 6.5 g/dL (6.3-8.2)
--- NOTE | 2017-04-24 21:35 | RADIOLOGY REPORT (SQ) ---
EXAM DESCRIPTION: CHEST SINGLE VIEW COMPLETED DATE/TIME: 04/24/2017 9:22 pm REASON FOR STUDY: Altered mental status COMPARISON: 01/07/2017 EXAM PARAMETERS: NUMBER OF VIEWS: One view. TECHNIQUE: Single frontal radiographic view of the chest acquired. RADIATION DOSE: NA LIMITATIONS: None. FINDINGS: LUNGS AND PLEURA: Stable elevation left hemidiaphragm with associated compressive atelecta sis/ scarring. Lungs and pleural spaces otherwise clear. MEDIASTINUM AND HILAR STRUCTURES: No masses. Contour normal. HEART AND VASCULAR STRUCTURES: Heart normal in size. Normal vasculature. BONES: No acute findings. HARDWARE: None in the chest. OTHER: No other significant finding. IMPRESSION: NO ACUTE RADIOGRAPHIC FINDING IN THE CHEST. NO SIGNIFICANT CHANGE FROM PRIOR STUDY. TECHNICAL DOCUMENTATION: JOB ID: [id number]
[2017-04-25] MEDS ORDERED: LEVOFLOXACIN 500 MG/D5W RTU 500 MG/100 ML RTUPB IV ONE (00:14)
[2017-04-25 01:36] VITALS: BP 132/73
--- NOTE | 2017-04-25 02:07 | EKG REPORT ---
SEVERITY:- NORMAL ECG - SINUS RHYTHM : Confirmed by: Juany Orosco MD 25-Apr-2017 02:06:24
--- NOTE | 2017-04-27 14:26 | ER Document Report ---
Doctor's Note Notes: 04/27/17 14:24 Urine C&S growing Proteus and E. Coli, both resistant to the Levaquin prescribed. Spoke with Dr. Avila and shared the culture results. He will check and decide upon which antibiotic he wants to prescribe. GAY
== END 2017-04-25 02:34 ==
LOC: ER 20:04
DX: N39.0 Urinary tract infection, site not specified (principal); R41.82 Altered mental status, unspecified; F03.90 Unspecified dementia, unspecified severity, without behavioral disturbance, psychotic disturbance, mood disturbance, and anxiety
CPT/HCPCS: 93005; 99285; 96361; 51702; 96365; 36415; 87040; 87086; 85025; 87088; 80053; 87186; 71010; 70450; 93010; J1956

== ENCOUNTER 2017-07-13 20:06 | Emergency (ER) | payer MEDICARE, MEDICAID ==
[2017-07-13] MEDS ORDERED: NORMAL SALINE 1000 ML 1,000 ML IV PRN (20:44)
--- NOTE | 2017-07-13 20:47 | ER Document Report ---
ED Headache - General Chief Complaint: Headache Stated Complaint: HEAD PAIN Time Seen by Provider: 07/13/17 20:43 Mode of Arrival: Stretcher Information source: Patient, Relative Notes: 77 years old female with history of multiple CVA, granddaughter saw her today with swelling and discoloration of the occipital region. With possible fall. And brought her to the ED. She was able to give somewhat history but could not recollect any fall. Has headache, denies any pain over upper limbs or lower limbs. She has a history of frequent UTI. no recent fever chills or other constitutional symptoms. TRAVEL OUTSIDE OF THE [place] IN LAST 30 DAYS: No - Related Data Allergies/Adverse Reactions: ceftriaxone sodium [From Rocephin] Allergy (Intermediate, Verified 07/13/17 20: 21) codeine [Codeine] Allergy (Verified 07/13/17 20:21) hydrocodone bitartrate [From Vicodin] Allergy (Verified 07/13/17 20:21) hydromorphone HCl [From Dilaudid] Allergy (Verified 07/13/17 20:21) latex [Latex] Allergy (Verified 07/13/17 20:21) oxycodone HCl [From Percocet] Allergy (Verified 07/13/17 20:21) Penicillins Allergy (Verified 07/13/17 20:21) Sulfa (Sulfonamide Antibiotics) Allergy (Verified 07/13/17 20:21) Past Medical History - Social History Smoking Status: Unknown if Ever Smoked Family History: Reviewed & Not Pertinent Patient has suicidal ideation: No Patient has homicidal ideation: No - Past Medical History Cardiac Medical History: Reports: Hx Heart Attack, Hx Hypercholesterolemia, Hx Hypertension Neurological Medical History: Denies: Hx Cerebrovascular Accident Renal/ Medical History: Reports: Hx Kidney Stones, Hx Ovarian Cysts. Denies: Hx Peritoneal Dialysis Psychiatric Medical History: Reports: Hx Anxiety, Hx Dementia, Hx Depression - anxiety Past Surgical History: Reports: Hx Section, Hx Hysterectomy, Hx Tonsillectomy, Hx Tubal Ligation - Immunizations Hx Diphtheria, Pertussis, Tetanus Vaccination: Yes Review of Systems - Review of Systems -: Yes ROS unobtainable due to patient's medical condition Physical Exam - Vital signs Vitals: Temp Pulse Resp BP Pulse Ox 97.7 F 66 16 98/54 L 95 07/13/17 20:16 07/13/17 20:16 07/13/17 20:16 07/13/17 20:16 07/13/17 20:16 - Notes Notes: PHYSICAL EXAMINATION: GENERAL: Appears dehydrated, but not in any acute distress. HEAD: Atraumatic, normocephalic. EYES: Pupils equal round and reactive to light, extraocular movements intact, conjunctiva are normal. ENT: Nares patent, oropharynx clear without exudates. Moist mucous membranes. NECK: Normal range of motion, supple without lymphadenopathy LUNGS: Breath sounds clear to auscultation bilaterally and equal. No wheezes rales or rhonchi. HEART: Regular rate and rhythm without murmurs ABDOMEN: Soft, nontender, nondistended abdomen. No guarding, no rebound. No masses appreciated. Female : deferred Musculoskeletal: I was able to flex and extend the both upper limbs and lower limbs. There were no tenderness or pain elicited during this time. NEUROLOGICAL: Cranial nerves grossly intact. Normal speech, Normal sensory, motor exams. PSYCH: Normal mood, normal affect. SKIN: Warm, Dry, normal turgor, no rashes or lesions noted. Course - Re-evaluation Re-evalutation: 07/13/17 23:26 Lab results were communicated to the granddaughter, urine was positive for UTI, given Levaquin p.o. - Vital Signs Vital signs: Temp Pulse Resp BP Pulse Ox 97.7 F 66 16 98/54 L 95 07/13/17 20:16 07/13/17 20:16 07/13/17 20:16 07/13/17 20:16 07/13/17 20:16 - Laboratory Result Diagrams: 07/13/17 21:00 07/13/17 21:00 Laboratory results interpreted by me: 07/13/17 07/13/17 07/13/17 21:00 21:00 21:35 RDW 14.2 H Carbon Dioxide 32 H BUN 22 H Total Protein 6.1 L Albumin 3.4 L Urine Blood SMALL H Urine Nitrite POSITIVE H Ur Leukocyte Esterase LARGE H Discharge - Discharge Clinical Impression: Fall Qualifiers: Encounter type: initial encounter Qualified Code(s): W19.XXXA - Unspecified fall, initial encounter Head injury Qualifiers: Encounter type: initial encounter Qualified Code(s): S09.90XA - Unspecified injury of head, initial encounter UTI (urinary tract infection) Qualifiers: Urinary tract infection type: acute cystitis Hematuria presence: without hematuria Qualified Code(s): N30.00 - Acute cystitis without hematuria Condition: Fair Disposition: HOME, SELF-CARE Instructions: Urinary Tract Infection, Child ([facility]) Prescriptions: Levofloxacin [Levaquin 500 mg Tablet] 500 mg PO DAILY #10 tablet Referrals: ASH MENDOZA MD [Primary Care Provider] - Follow up as needed
[2017-07-13 21:16] LABS: ABSOLUTE BASOPHILS # (AUTO) 0.1 10^3/uL (0.0-0.2); ABSOLUTE EOSINOPHILS # (AUTO) 0.4 10^3/uL (0.0-0.6); ABSOLUTE LYMPHOCYTES (AUTO) 2.4 10^3/uL (0.5-4.7); ABSOLUTE MONOCYTES (AUTO) 0.7 10^3/uL (0.1-1.4); ABSOLUTE NEUT (AUTO) 4.5 10^3/uL (1.7-8.2); BASOPHILS % (AUTO) 1.2 % (0-2); EOSINOPHILS % (AUTO) 4.4 % (0-6); HEMATOCRIT 37.4 % (36.0-47.0); HEMOGLOBIN 12.4 g/dL (12.0-15.5); HGB HCT DIFFERENCE -0.2; LYMPHOCYTES % (AUTO) 29.6 % (13-45); MEAN CORPUSCULAR HEMOGLOBIN 30.4 pg (27.0-33.4); MEAN CORPUSCULAR VOLUME 92 fl (80-97); MONOCYTES % (AUTO) 8.6 % (3-13); RED BLOOD COUNT 4.07 10^6/uL (3.72-5.28); RED CELL DISTRIBUTION WIDTH 14.2 % (11.5-14.0); SEGMENTED NEUTROPHILS % (AUTO) 56.2 % (42-78); WHITE BLOOD COUNT 8.1 10^3/uL (4.0-10.5)
[2017-07-13 21:36] LABS: ALANINE AMINOTRANSFERASE 37 U/L (9-52); ALBUMIN 3.4 g/dL (3.5-5.0); ALKALINE PHOSPHATASE 72 U/L (38-126); ANION GAP 9 (5-19); ASPARTATE AMINO TRANSFERASE 26 U/L (14-36); BILIRUBIN,DIRECT 0.2 mg/dL (0.0-0.4); BILIRUBIN,TOTAL 0.2 mg/dL (0.2-1.3); BLOOD UREA NITROGEN 22 mg/dL (7-20); CALCIUM 9.7 mg/dL (8.4-10.2); CARBON DIOXIDE 32 mmol/L (22-30); CHLORIDE 103 mmol/L (98-107); CREATININE RESULT 0.62 mg/dL (0.52-1.25); GLUCOSE 107 mg/dL (75-110); POTASSIUM 4.4 mmol/L (3.6-5.0); SODIUM 143.9 mmol/L (137-145); TOTAL PROTEIN 6.1 g/dL (6.3-8.2)
[2017-07-13 21:57] LABS: APPEARANCE,URINE CLOUDY; BILIRUBIN,URINE NEGATIVE (NEGATIVE); GLUCOSE, URINE NEGATIVE (NEGATIVE); KETONES,URINE NEGATIVE (NEGATIVE); LEUKOCYTE ESTERASE,URINE LARGE (NEGATIVE); NITRITE,URINE POSITIVE (NEGATIVE); PROTEIN,URINE NEGATIVE (NEGATIVE); URINE SPECIFIC GRAVITY 1.018; UROBILINOGEN,URINE NEGATIVE mg/dL (<2.0)
--- NOTE | 2017-07-13 22:59 | RADIOLOGY REPORT (SQ) ---
EXAM DESCRIPTION: CT HEAD WITHOUT COMPLETED DATE/TIME: 07/13/2017 10:49 pm REASON FOR STUDY: Head injury COMPARISON: 05/17/2017 TECHNIQUE: Axial images acquired through the brain without intravenous contrast. Images reviewed wi th bone, brain and subdural windows. Images stored on PACS. All CT scanners at this facility use dose modulation, iterative reconstruction, and/or weight based d osing when appropriate to reduce radiation dose to as low as reasonably achievable (ALARA). [facility]: Dose Right [facility]: CareDose [facility]: Dose Right [facility]: Teradose 4D [facility]: [employer] RADIATION DOSE: CT Rad equipment meets quality standard of care and radiation dose reduction techniq ues were employed. CTDIvol: 64.6 mGy. DLP: 1163 mGy-cm.mGy. LIMITATIONS: None. FINDINGS: VENTRICLES: Prominent. CEREBRUM: No masses. No hemorrhage. No midline shift. Areas of low density in the white matter mos t likely due to chronic micro-vascular ischemic change. No evidence for acute infarction. CEREBELLUM: No masses. No hemorrhage. No alteration of density. No evidence for acute infarction. EXTRAAXIAL SPACES: Age-related involutional change. No fluid collections. No masses. ORBITS AND GLOBE: No intra- or extraconal masses. Normal contour of globe without masses. CALVARIUM: No fracture. PARANASAL SINUSES: No fluid or mucosal thickening. SOFT TISSUES: No mass or hematoma. OTHER: No other significant finding. IMPRESSION: CHRONIC CHANGES OF ATROPHY AND MICROVASCULAR ISCHEMIA. NO ACUTE PROCESS. EVIDENCE OF ACUTE STROKE: NO. TECHNICAL DOCUMENTATION: JOB ID: [id number] Quality ID # [id number]: Final reports with documentation of one or more dose reduction techniques (e.g., Au tomated exposure control, adjustment of the mA and/or kV according to patient size, use of iterative reconstruction technique) 2010 [facility]- All Rights Reserved
[2017-07-13] MEDS ORDERED: LEVOFLOXACIN 750 MG TABLET PO ONE (23:26)
[2017-07-14 02:04] VITALS: BP 102/76
== END 2017-07-14 02:15 | disposition home or self-care (01) ==
LOC: ER 20:06
DX: S09.90XA Unspecified injury of head, initial encounter (principal); W19.XXXA Unspecified fall, initial encounter; N30.00 Acute cystitis without hematuria; R51 Headache; I10 Essential (primary) hypertension; I25.2 Old myocardial infarction; Z86.73 Personal history of transient ischemic attack (TIA), and cerebral infarction without residual deficits; Z88.1 Allergy status to other antibiotic agents; Z88.5 Allergy status to narcotic agent; Z91.040 Latex allergy status; Z88.2 Allergy status to sulfonamides; Z88.0 Allergy status to penicillin
CPT/HCPCS: 99284; 96360; 36415; 85025; 80053; 81001; 70450; J7030

== ENCOUNTER 2017-08-13 23:07 | Emergency (ER) | payer MEDICARE, MEDICAID ==
--- NOTE | 2017-08-13 23:54 | ER Document Report ---
ED General - General Stated Complaint: ALTERED MENTAL STATUS Time Seen by Provider: 08/13/17 23:26 Notes: Patient is a 77-year-old female presents with complaint of altered mental status. Family told nursing staff that this is not her typical mental state. Patient was apparently unresponsive to painful stimuli at the correction. Here I am able to palpate her chest and she will open her eyes a little bit. She is very weak appearing. She is unable to give me much history. She just mumbles a few words. He tells me she has pain in her bone. She cannot clarify what bone she means. When asked if she has chest pain or abdominal pain she will not answer me. Remainder of history is very difficult to obtain. TRAVEL OUTSIDE OF THE [place] IN LAST 30 DAYS: No - Related Data Allergies/Adverse Reactions: ceftriaxone sodium [From Rocephin] Allergy (Intermediate, Verified 07/13/17 20: 21) codeine [Codeine] Allergy (Verified 07/13/17 20:21) hydrocodone bitartrate [From Vicodin] Allergy (Verified 07/13/17 20:21) hydromorphone HCl [From Dilaudid] Allergy (Verified 07/13/17 20:21) latex [Latex] Allergy (Verified 07/13/17 20:21) oxycodone HCl [From Percocet] Allergy (Verified 07/13/17 20:21) Penicillins Allergy (Verified 07/13/17 20:21) Sulfa (Sulfonamide Antibiotics) Allergy (Verified 07/13/17 20:21) Past Medical History - Social History Smoking Status: Unknown if Ever Smoked Frequency of alcohol use: None Drug Abuse: None Family History: Reviewed & Not Pertinent - Past Medical History Cardiac Medical History: Reports: Hx Heart Attack, Hx Hypercholesterolemia, Hx Hypertension Neurological Medical History: Denies: Hx Cerebrovascular Accident Renal/ Medical History: Reports: Hx Kidney Stones, Hx Ovarian Cysts. Denies: Hx Peritoneal Dialysis Psychiatric Medical History: Reports: Hx Anxiety, Hx Dementia, Hx Depression - anxiety Past Surgical History: Reports: Hx Section, Hx Hysterectomy, Hx Tonsillectomy, Hx Tubal Ligation - Immunizations Hx Diphtheria, Pertussis, Tetanus Vaccination: Yes Review of Systems - Review of Systems -: Yes ROS unobtainable due to patient's medical condition - Patient is altered. Physical Exam - Vital signs Vitals: Pulse Resp BP Pulse Ox 54 L 11 L 111/59 L 96 08/13/17 23:49 08/13/17 23:49 08/13/17 23:49 08/13/17 23:49 - Notes Notes: General Appearance: Very somnolent. Vitals: reviewed, See vital signs table. Head: no swelling or tenderness to the head Eyes: PERRL, EOMI, Conjuctiva clear Mouth: No decreasd moisture Throat: No tonsillar inflammation, No airway obstruction, No lymphadenopathy Lungs: No wheezing, No rales, No rhonci, No accessory muscle use, good air exchange bilaterally. Heart: Normal rate, Regular rythm, No murmur, no rub Abdomen: Normal BS, soft, No rigidity, No abdominal tenderness, No guarding, no rebound, no abdominal masses, no organomegaly Extremities: strength 5/5 in all extremities, good pulses in all extremities, no swelling or tenderness in the extremities, no edema. Skin: warm, dry, appropriate color, no rash Neuro: Alert. Will open her eyes to turn over. Will mumble a few words. Unable to do further neuro exam patient is altered and unable to comply. Course - Re-evaluation Re-evalutation: 08/14/17 03:51 Patient has a UTI which appears to be causing her altered mental status. I did speak with the family. Concern is that she cannot take oral antibiotics at the correction for altered mental status. I did speak with Dr. Avila. He says he will have the patient receive IV antibiotics at the correction. She is otherwise not septic and well-appearing. She is not hypotensive and her vital signs are normal. He does agree to continue to have her receive IV hydration and antibiotics. I will write a prescription for the IV antibiotics. He says he wants her to make sure she gets these. I did discuss case with patient's daughter who is okay with the plan. Patient to return to the ER if she has fevers, blood pressure, or if she appears to be worsening. Dictation of this chart was performed using voice recognition software; therefore, there may be some unintended grammatical errors. - Vital Signs Vital signs: Temp Pulse Resp BP Pulse Ox 54 L 11 L 111/59 L 96 08/13/17 23:49 08/13/17 23:49 08/13/17 23:49 08/13/17 23:49 - Laboratory Result Diagrams: 08/13/17 23:35 08/13/17 23:35 Laboratory results interpreted by me: 08/13/17 08/13/17 23:35 23:35 Carbon Dioxide 33 H Glucose 126 H AST 45 H Ur Leukocyte Esterase LARGE H Discharge - Discharge Clinical Impression: UTI (urinary tract infection) Qualifiers: Urinary tract infection type: site unspecified Hematuria presence: without hematuria Qualified Code(s): N39.0 - Urinary tract infection, site not specified Altered mental status Qualifiers: Altered mental status type: unspecified Qualified Code(s): R41.82 - Altered mental status, unspecified Condition: Good Additional Instructions: Mrs. Crane has a urinary tract infection which is likely leading to her confusion. I have spoken with Dr. Priest who agrees to continue IV antibiotics at the correction. Please have Mrs. Crane return to the ER if she has fevers, low blood pressure, or appears to b worsening. Prescriptions: Ciprofloxacin in 5 % Dextrose [Cipro I.v. 400 mg/200 ml D5w] 200 ml IV Q12 #14 pkt
[2017-08-14 00:11] LABS: ABSOLUTE EOSINOPHILS # (AUTO) 0.4 10^3/uL (0.0-0.6); ABSOLUTE LYMPHOCYTES (AUTO) 2.2 10^3/uL (0.5-4.7); ABSOLUTE MONOCYTES (AUTO) 0.4 10^3/uL (0.1-1.4); ABSOLUTE NEUT (AUTO) 3.6 10^3/uL (1.7-8.2); BASOPHILS % (AUTO) 0.6 % (0-2); EOSINOPHILS % (AUTO) 5.4 % (0-6); HEMATOCRIT 38.3 % (36.0-47.0); HEMOGLOBIN 12.8 g/dL (12.0-15.5); MEAN CORPUSCULAR HEMOGLOBIN 30.6 pg (27.0-33.4); MEAN CORPUSCULAR HGB CONC 33.3 g/dL (32.0-36.0); MEAN CORPUSCULAR VOLUME 92 fl (80-97); MONOCYTES % (AUTO) 6.4 % (3-13); PLATELET COUNT 172 10^3/uL (150-450); RED BLOOD COUNT 4.18 10^6/uL (3.72-5.28); RED CELL DISTRIBUTION WIDTH 13.8 % (11.5-14.0); SEGMENTED NEUTROPHILS % (AUTO) 54.6 % (42-78); TOTAL CELLS COUNTED % (AUTO) 100 %; WHITE BLOOD COUNT 6.5 10^3/uL (4.0-10.5)
[2017-08-14 00:16] VITALS: BP 111/59
[2017-08-14 00:23] LABS: ALANINE AMINOTRANSFERASE 25 U/L (9-52); ALBUMIN 3.6 g/dL (3.5-5.0); ALKALINE PHOSPHATASE 63 U/L (38-126); ANION GAP 6 (5-19); ASPARTATE AMINO TRANSFERASE 45 U/L (14-36); BILIRUBIN,DIRECT 0.2 mg/dL (0.0-0.4); BILIRUBIN,TOTAL 0.6 mg/dL (0.2-1.3); BLOOD UREA NITROGEN 16 mg/dL (7-20); CALCIUM 10.2 mg/dL (8.4-10.2); CARBON DIOXIDE 33 mmol/L (22-30); CHLORIDE 101 mmol/L (98-107); GLUCOSE 126 mg/dL (75-110); POTASSIUM 4.1 mmol/L (3.6-5.0); SODIUM 140.1 mmol/L (137-145); TOTAL PROTEIN 6.5 g/dL (6.3-8.2)
[2017-08-14 00:40] LABS: APPEARANCE,URINE SLIGHTLY-CLOUDY; BILIRUBIN,URINE NEGATIVE (NEGATIVE); COLOR,URINE YELLOW; GLUCOSE, URINE NEGATIVE (NEGATIVE); KETONES,URINE NEGATIVE (NEGATIVE); LEUKOCYTE ESTERASE,URINE LARGE (NEGATIVE); NITRITE,URINE NEGATIVE (NEGATIVE); PROTEIN,URINE NEGATIVE (NEGATIVE); URINE SPECIFIC GRAVITY 1.015; UROBILINOGEN,URINE NEGATIVE mg/dL (<2.0)
--- NOTE | 2017-08-14 01:13 | RADIOLOGY REPORT (SQ) ---
EXAM DESCRIPTION: CT HEAD WITHOUT CLINICAL HISTORY: altered mental status COMPARISON: 07/13/2017 TECHNIQUE: Axial CT of the head obtained from the skull apex to the skull base without contrast. FINDINGS: No acute intracranial hemorrhage identified. No mass, mass effect, shift of the midline, abnormal extra-axial fluid collection or CT evidence of acute ischemic change identified. The ventricular system and sulcal spaces are mildly enlarged compatible with mild cerebral atrophy. Scattered areas of hypodensity throughout the supratentorial white matter are nonspecific and may be related to chronic small vessel ischemic change. The visualized paranasal sinuses and the mastoids are clear. No skull fracture identified. Visualized orbits and globes are unremarkable. Atherosclerotic calcification of the intracranial internal carotid arteries. DLP:1162.97 mGy-cm IMPRESSION: 1. No acute intracranial abnormality by CT criteria. This exam was performed according to our departmental dose-optimization program, which includes automated exposure control, adjustment of the mA and/or kV according to patient size and/or use of iterative reconstruction technique.
--- NOTE | 2017-08-14 01:24 | RADIOLOGY REPORT (SQ) ---
EXAM DESCRIPTION: CHEST SINGLE VIEW CLINICAL HISTORY: altered mental status COMPARISON: 05/17/2017 FINDINGS: Single frontal view of the chest. Atherosclerotic calcification of the aortic arch. Heart is not enlarged. Elevation left hemidiaphragm is stable. Leads overlie the chest. Linear left basilar opacities likely related to discoid atelectasis from elevation the left hemidiaphragm. These are not significantly changed. No lobar consolidation, pneumothorax, or pleural effusion. No displaced rib fractures identified. Upper abdominal soft tissues are unremarkable. IMPRESSION: 1. No acute pulmonary process identified.
[2017-08-14] MEDS ORDERED: CIPROFLOXACIN 400 MG/D5W RTU 400 MG/200 ML RTUPB IV ONE (02:30)
[2017-08-14] MEDS ORDERED: NORMAL SALINE 1000 ML 1,000 ML IV ONE (02:30)
--- NOTE | 2017-08-14 07:40 | EKG REPORT ---
SEVERITY:- ABNORMAL ECG - ACCELERATED JUNCTIONAL ESCAPE RHYTHM : Confirmed by: Juany Orosco MD 14-Aug-2017 07:38:41
--- NOTE | 2017-08-14 07:40 | EKG REPORT ---
SEVERITY:- NORMAL ECG - SINUS RHYTHM : Confirmed by: Juany Orosco MD 14-Aug-2017 07:38:47
== END 2017-08-14 04:32 | disposition home or self-care (01) ==
LOC: ER 23:07
DX: N39.0 Urinary tract infection, site not specified (principal); R41.82 Altered mental status, unspecified
CPT/HCPCS: 93005 ×2; 99285; 51701; 96365; 36415; 87086; 84132; 85025; 80053; 81001; 84484; 71045; 70450; 93010 ×2; J7030; J0744